=== PATIENT | female | born 1965 | race Two or more races ===

== ENCOUNTER 2018-10-29 13:04 | Emergency (ER) | payer SELFPAY ==
[2018-10-29] MEDS ORDERED: Sodium Chloride 0.9% 1,000 ML IV ONE ×2 (13:21→13:57)
[2018-10-29] MEDS ORDERED: Morphine 4 MG/ML Syringe IVPUSH ONE (13:27)
[2018-10-29] MEDS ORDERED: Ondansetron 4 MG/2 ML SDV IVPUSH ONE (13:27)
--- NOTE | 2018-10-29 13:34 | EDM.PDOC ---
ED HPI GENERAL MEDICAL PROBLEM - General Chief Complaint: WEB APPLICATIONS ARCHITECT Problem Stated Complaint: PELVIC AND BACK PAIN Time Seen by Provider: 10/29/18 13:05 Source of Information: Reports: Patient History Limitations: Reports: No Limitations - History of Present Illness INITIAL COMMENTS - FREE TEXT/NARRATIVE: HISTORY AND PHYSICAL: History of present illness: Patient is a 53-year-old female who presents to the ED today with concerns of lower abdominal and pelvic pain. Patient states this is ongoing for the past week but is drastically worsened overnight. The patient states that "feels like something falling out of my vagina". She rates her pain an 8-9 out of 10. Patient has been able to eat and drink per normal. She describes the pain as sharp and constant. She states is worse when she presses on it and better when she lays down. She is and in a monogamous relationship. He does have a history of complete hysterectomy and appendectomy. Patient denies fever, chills, nausea, vomiting, diarrhea, constipation, change in stools , blood in stool, difficulties urinating, burning with urination, vaginal discharge, vaginal pain, Review of systems: As per history of present illness and below otherwise all systems reviewed and negative. Past medical history: As per history of present illness and as reviewed below otherwise noncontributory. Surgical history: As per history of present illness and as reviewed below otherwise noncontributory. Social history: See social history for further information Family history: As per history of present illness and as reviewed below otherwise noncontributory. Physical exam: General:Patient is alert, oriented, and in no acute distress. She is lying on exam table mildly uncomfortable. HEENT: Atraumatic, normocephalic, pupils equal and reactive bilaterally, negative for conjunctival pallor or scleral icterus, mucous membranes moist, TMs normal bilaterally, throat clear, neck supple, nontender, trachea midline. No drooling or trismus noted. No meningeal signs. No hot potato voice noted. Lungs: Clear to auscultation, breath sounds equal bilaterally, chest nontender. Heart: S1S2, regular rate and rhythm without overt murmur Abdomen: Abdominal exam limited due to pain. Severe pain to light palpation of the lower half of the abdomen. Soft, nondistended.positive bowel sounds in all quadrants. Negative for masses or hepatosplenomegaly. Negative for costovertebral tenderness. Pelvis: Stable nontender. Genitourinary: This was done with consent and a wire dropper at bedside. Patient does have severe tenderness with insertion of speculum. Genitourinary exam limited due to pain. External genitalia are intact. No protrusions out of the vaginal vault when asked to bear down. Difficulty visualizing her to surgical cuff due to severe tenderness. No abnormal discharge noted. Rectal: Deferred. Skin: Intact, warm, dry. No lesions or rashes noted. Extremities: Atraumatic, negative for cords or calf pain. Neurovascular unremarkable. Neuro: Awake, alert, oriented. Cranial nerves II through XII unremarkable. Cerebellum unremarkable. Motor and sensory unremarkable throughout. Exam nonfocal. Notes: On exam, patient does have severe tenderness to palpation of the lower abdomen. Will perform labs today as well as abdominal CT. Abdominal/pelvic CT shows no acute findings. She does have a urinary tract infection today. Patient vital signs are stable. Discussed these results with patient and will treat for urinary tract infection. On initial presentation, she was hypotensive upon initial presentation. Although nursing staff believes this was an inaccurate reading as it was rechecked shortly after with a reading of 120s over 80s. Supportive care measures were reviewed and discussed. Voices understanding and is agreeable to plan of care. Denies any further questions or concerns at this time. Diagnostics: CBC, CMP, UA, firm, gonorrhea and chlamydia, abdominal pelvic CT Therapeutics: Saline, Zofran, morphine Prescription: Macrobid, Pyridium Impression: 1. Urinary tract infection Plan: 1. Please take antibiotic and medication as prescribed. 2. You may alternate Tylenol and ibuprofen as needed for pain. 3. Follow up with your primary care provider in the next 1-2 days. 4. Return to the ED as needed and as discussed. Definitive disposition and diagnosis as appropriate pending reevaluation and review of above. pelivic region Pain Score (Numeric/FACES): 7 - Related Data Allergies Allergy/AdvReac Type Severity Reaction Status Date / Time No Known Allergies Allergy Verified 10/29/18 13:16 Home Meds: Home Meds Nitrofurantoin Monohyd/M-Cryst [Macrobid 100 mg Capsule] 100 mg PO BID 5 Days # 10 capsule 10/29/18 [Rx] Phenazopyridine HCl [Pyridium] 100 mg PO TID 2 Days #8 tablet 10/29/18 [Rx] Past Medical History HEENT History: Reports: None Cardiovascular History: Reports: None Respiratory History: Reports: None Gastrointestinal History: Reports: None Genitourinary History: Reports: None WEB APPLICATIONS ARCHITECT History: Reports: None Musculoskeletal History: Reports: None Neurological History: Reports: None Psychiatric History: Reports: None Endocrine/Metabolic History: Reports: None Hematologic History: Reports: None Immunologic History: Reports: None Oncologic (Cancer) History: Reports: None Dermatologic History: Reports: None - Infectious Disease History Infectious Disease History: Reports: C-Difficile - Past Surgical History Head Surgeries/Procedures: Reports: None HEENT Surgical History: Reports: None Cardiovascular Surgical History: Reports: None Respiratory Surgical History: Reports: None GI Surgical History: Reports: Appendectomy Female Surgical History: Reports: Hysterectomy, Tubal Ligation, Other (See Below) Other Female Surgeries/Procedures: exploratory srugeyr for ovaries Endocrine Surgical History: Reports: None Neurological Surgical History: Reports: None Musculoskeletal Surgical History: Reports: None Oncologic Surgical History: Reports: None Dermatological Surgical History: Reports: None Social & Family History - Family History Family Medical History: Noncontributory - Tobacco Use Smoking Status *Q: Former Smoker Used Tobacco, but Quit: Yes Month/Year Tobacco Last Used: November 2017 - Caffeine Use Caffeine Use: Reports: None - Recreational Drug Use Recreational Drug Use: No ED ROS GENERAL - Review of Systems Review Of Systems: ROS reveals no pertinent complaints other than HPI. ED EXAM, GI/ABD - Physical Exam Exam: See Below (See dictation) Course - Vital Signs Last Recorded V/S: Last Vital Signs Temp 97.9 F 10/29/18 13:17 Pulse 62 10/29/18 15:19 Resp 13 10/29/18 15:19 BP 116/76 10/29/18 15:19 Pulse Ox 98 10/29/18 15:19 - Orders/Labs/Meds Orders: Active Orders 24 hr Category Date Time Status EKG Documentation Completion [RC] STAT Care 10/29/18 13:32 Inactive CHLAMYDIA AND GONORRHEA BY TMA Stat Lab 10/29/18 14:50 Received CULTURE URINE [RM] Stat Lab 10/29/18 14:10 Received Labs: Laboratory Tests 10/29/18 10/29/18 10/29/18 Range/Units 13:29 13:29 13:56 WBC 5.54 (4.0-11.0) K/uL RBC 4.80 (4.30-5.90) M/uL Hgb 13.7 (12.0-16.0) g/dL Hct 41.1 (36.0-46.0) % MCV 85.6 (80.0-98.0) fL MCH 28.5 (27.0-32.0) pg MCHC 33.3 (31.0-37.0) g/dL RDW Std Deviation 45.6 (28.0-62.0) fl RDW Coeff of Elver 15 (11.0-15.0) % Plt Count 294 (150-400) K/uL MPV 9.50 (7.40-12.00) fL Neut % (Auto) 65.9 (48.0-80.0) % Lymph % (Auto) 21.8 (16.0-40.0) % Rusk % (Auto) 11.4 (0.0-15.0) % Eos % (Auto) 0.7 (0.0-7.0) % Baso % (Auto) 0.2 (0.0-1.5) % Neut # (Auto) 3.7 (1.4-5.7) K/uL Lymph # (Auto) 1.2 (0.6-2.4) K/uL Rusk # (Auto) 0.6 (0.0-0.8) K/uL Eos # (Auto) 0.0 (0.0-0.7) K/uL Baso # (Auto) 0.0 (0.0-0.1) K/uL Nucleated RBC % 0.0 /100WBC Nucleated RBCs # 0 K/uL Sodium 139 (136-145) mmol/L Potassium 3.6 (3.5-5.1) mmol/L Chloride 105 (98-107) mmol/L Carbon Dioxide 24.4 (21.0-32.0) mmol/L BUN 13 (7.0-18.0) mg/dL Creatinine 0.7 (0.6-1.0) mg/dL Est Cr Clr Drug Dosing 72.66 mL/min Estimated GFR (MDRD) > 60.0 ml/min Glucose 100 (74-106) mg/dL Calcium 8.5 (8.5-10.1) mg/dL Total Bilirubin 0.2 (0.2-1.0) mg/dL AST 17 (15-37) IU/L ALT 18 (14-63) IU/L Alkaline Phosphatase 111 (46-116) U/L Total Protein 7.5 (6.4-8.2) g/dL Albumin 3.4 (3.4-5.0) g/dL Globulin 4.1 H (2.6-4.0) g/dL Albumin/Globulin Ratio 0.8 L (0.9-1.6) Urine Color Urine Appearance Urine pH (5.0-8.0) Ur Specific [place] (1.001-1.035) Urine Protein (NEGATIVE) mg/dL Urine Glucose (UA) (NEGATIVE) mg/dL Urine Ketones (NEGATIVE) mg/dL Urine Occult Blood (NEGATIVE) Urine Nitrite (NEGATIVE) Urine Bilirubin (NEGATIVE) Urine Urobilinogen (<2.0) EU/dL Ur Leukocyte Esterase (NEGATIVE) Urine RBC (0-2/HPF) Urine WBC (0-5/HPF) Ur Epithelial Cells (NONE-FEW) Urine Bacteria (NEGATIVE) Leonor species DNA NEGATIVE (NEGATIVE) Gardnerella DNA Probe NEGATIVE (NEGATIVE) Trichomonas DNA Probe NEGATIVE (NEGATIVE) 10/29/18 Range/Units 14:10 WBC (4.0-11.0) K/uL RBC (4.30-5.90) M/uL Hgb (12.0-16.0) g/dL Hct (36.0-46.0) % MCV (80.0-98.0) fL MCH (27.0-32.0) pg MCHC (31.0-37.0) g/dL RDW Std Deviation (28.0-62.0) fl RDW Coeff of Elver (11.0-15.0) % Plt Count (150-400) K/uL MPV (7.40-12.00) fL Neut % (Auto) (48.0-80.0) % Lymph % (Auto) (16.0-40.0) % Rusk % (Auto) (0.0-15.0) % Eos % (Auto) (0.0-7.0) % Baso % (Auto) (0.0-1.5) % Neut # (Auto) (1.4-5.7) K/uL Lymph # (Auto) (0.6-2.4) K/uL Rusk # (Auto) (0.0-0.8) K/uL Eos # (Auto) (0.0-0.7) K/uL Baso # (Auto) (0.0-0.1) K/uL Nucleated RBC % /100WBC Nucleated RBCs # K/uL Sodium (136-145) mmol/L Potassium (3.5-5.1) mmol/L Chloride (98-107) mmol/L Carbon Dioxide (21.0-32.0) mmol/L BUN (7.0-18.0) mg/dL Creatinine (0.6-1.0) mg/dL Est Cr Clr Drug Dosing mL/min Estimated GFR (MDRD) ml/min Glucose (74-106) mg/dL Calcium (8.5-10.1) mg/dL Total Bilirubin (0.2-1.0) mg/dL AST (15-37) IU/L ALT (14-63) IU/L Alkaline Phosphatase (46-116) U/L Total Protein (6.4-8.2) g/dL Albumin (3.4-5.0) g/dL Globulin (2.6-4.0) g/dL Albumin/Globulin Ratio (0.9-1.6) Urine Color YELLOW Urine Appearance SLT CLOUDY Urine pH 5.5 (5.0-8.0) Ur Specific [place] 1.010 (1.001-1.035) Urine Protein NEGATIVE (NEGATIVE) mg/dL Urine Glucose (UA) NEGATIVE (NEGATIVE) mg/dL Urine Ketones NEGATIVE (NEGATIVE) mg/dL Urine Occult Blood SMALL H (NEGATIVE) Urine Nitrite NEGATIVE (NEGATIVE) Urine Bilirubin NEGATIVE (NEGATIVE) Urine Urobilinogen 0.2 (<2.0) EU/dL Ur Leukocyte Esterase MODERATE H (NEGATIVE) Urine RBC 2-4 (0-2/HPF) Urine WBC 3-6 (0-5/HPF) Ur Epithelial Cells FEW (NONE-FEW) Urine Bacteria FEW (NEGATIVE) Leonor species DNA (NEGATIVE) Gardnerella DNA Probe (NEGATIVE) Trichomonas DNA Probe (NEGATIVE) Meds: Medications Discontinued Medications Generic Name Dose Route Start Last Admin Trade Name Freq PRN Reason Stop Dose Admin Sodium Chloride 1,000 mls @ 999 mls/hr 10/29/18 13:21 10/29/18 14:01 Normal Saline IV 10/29/18 14:21 999 mls/hr STAT ONE Administration Sodium Chloride 1,000 mls @ 999 mls/hr 10/29/18 13:57 10/29/18 14:07 Normal Saline IV 10/29/18 14:57 Not Given STAT ONE Morphine Sulfate 4 mg 10/29/18 13:27 10/29/18 14:01 Morphine IVPUSH 10/29/18 13:28 4 mg ONETIME ONE Administration Ondansetron HCl 4 mg 10/29/18 13:27 10/29/18 14:01 Zofran IVPUSH 10/29/18 13:28 4 mg ONETIME ONE Administration Departure - Departure Time of Disposition: 15:19 Disposition: Home, Self-Care 01 Clinical Impression: Urinary tract infection Qualifiers: Urinary tract infection type: site unspecified Hematuria presence: without hematuria Qualified Code(s): N39.0 - Urinary tract infection, site not specified - Discharge Information Prescriptions: Nitrofurantoin Monohyd/M-Cryst [Macrobid 100 mg Capsule] 100 mg PO BID 5 Days # 10 capsule Phenazopyridine HCl [Pyridium] 100 mg PO TID 2 Days #8 tablet Instructions: Urinary Tract Infection, Adult, [id number] Referrals: PCP,None [Primary Care Provider] - Forms: ED Department Discharge Additional Instructions: The following information is given to patients seen in the emergency department who are being discharged to home. This information is to outline your options for follow-up care. We provide all patients seen in our emergency department with a follow-up referral. The need for follow-up, as well as the timing and circumstances, are variable depending upon the specifics of your emergency department visit. If you don't have a primary care physician on staff, we will provide you with a referral. We always advise you to contact your personal physician following an emergency department visit to inform them of the circumstance of the visit and for follow-up with them and/or the need for any referrals to a consulting specialist. The emergency department will also refer you to a specialist when appropriate. This referral assures that you have the opportunity for follow-up care with a specialist. All of these measure are taken in an effort to provide you with optimal care, which includes your follow-up. Under all circumstances we always encourage you to contact your private physician who remains a resource for coordinating your care. When calling for follow-up care, please make the office aware that this follow-up is from your recent emergency room visit. If for any reason you are refused follow-up, please contact the [facility] Emergency Department at and asked to speak to the emergency department charge nurse. [facility] [address] [place] [id number] [facility] [address] [place] [id number] 1. Please take antibiotic and medication as prescribed. 2. You may alternate Tylenol and ibuprofen as needed for pain. 3. Follow up with your primary care provider in the next 1-2 days. 4. Return to the ED as needed and as discussed. - My Orders Last 24 Hours: My Active Orders 10/29/18 13:32 EKG Documentation Completion [RC] STAT 10/29/18 14:10 CULTURE URINE [RM] Stat 10/29/18 14:50 CHLAMYDIA AND GONORRHEA BY TMA Stat - Assessment/Plan Last 24 Hours: My Active Orders 10/29/18 13:32 EKG Documentation Completion [RC] STAT 10/29/18 14:10 CULTURE URINE [RM] Stat 10/29/18 14:50 CHLAMYDIA AND GONORRHEA BY TMA Stat
[2018-10-29 14:06] LABS: CHLORIDE,CL 105 mmol/L (98-107); SODIUM,NA 139 mmol/L (136-145)
--- NOTE | 2018-10-29 15:09 | CT ---
CT of the abdomen and pelvis without contrast. HISTORY: Pain TECHNIQUE: Axial CT images were obtained of the abdomen and pelvis without contrast. Coronal and sagittal reconstructions obtained. FINDINGS: The lung bases are clear, no pleural effusion. The liver, spleen, adrenal glands, and pancreas appear unremarkable for noncontrast examination. The gallbladder appears normal. There is no bulky retroperitoneal lymphadenopathy. No abdominal ascites. There are no calcifications noted within the kidneys or along the courses of the ureters bilaterally. The large and small bowel are normal in caliber without evidence of obstruction. There is no bulky pelvic lymphadenopathy. No free fluid. No free air. The urinary bladder appears normal. The visualized osseous structures appear normal. IMPRESSION: No acute findings within the abdomen or pelvis.
== END 2018-10-29 15:35 | disposition home or self-care (01) ==
LOC: MW.ED 13:04
DX: N39.0 Urinary tract infection, site not specified (principal); Z87.891 Personal history of nicotine dependence
CPT/HCPCS: 36415; 74176; 80053; 81001; 85025; 87086; 87480; 87491; 87510; 87591; 87660; 96361; 96374; 96375; 99284; J2270; J2405; J7040

== ENCOUNTER 2018-11-01 18:15 | Emergency (ER) | payer OTHER ==
--- NOTE | 2018-11-01 18:32 | EDM.PDOC ---
ED HPI GENERAL MEDICAL PROBLEM - General Chief Complaint: Lower Extremity Injury/Pain Stated Complaint: PT HURT LT LEG Time Seen by Provider: 11/01/18 18:32 Source of Information: Reports: Patient History Limitations: Reports: No Limitations - History of Present Illness INITIAL COMMENTS - FREE TEXT/NARRATIVE: HISTORY AND PHYSICAL: History of present illness: Patient is a 53-year-old female here with complaints of left ankle injury. She states that while at work at [employer] she slipped twisting her left ankle. She has been able to bear weight on it injury. She denies head injury or any other pain and is otherwise in her usual state of good health. Review of systems: As per history of present illness and below otherwise all systems reviewed and negative. Past medical history: As per history of present illness and as reviewed below otherwise noncontributory. Surgical history: As per history of present illness and as reviewed below otherwise noncontributory. Social history: No reported history of drug or alcohol abuse. Family history: As per history of present illness and as reviewed below otherwise noncontributory. Physical exam: General: Patient sitting comfortably in no acute distress and nontoxic appearing HEENT: Atraumatic, normocephalic, pupils reactive, negative for conjunctival pallor or scleral icterus, mucous membranes moist, throat clear, neck supple, nontender, trachea midline. No meningeal signs. Lungs: Clear to auscultation, breath sounds equal bilaterally, chest nontender. Heart: S1S2, regular, negative for clicks, rubs, or overt murmur. Abdomen: Soft, nondistended, nontender. Negative for masses or hepatosplenomegaly. Negative for costovertebral tenderness. Pelvis: Stable nontender. Genitourinary: Deferred. Rectal: Deferred. Extremities: Left lateral malleolus as swollen tender to palpation without any obvious deformity. No proximal pain to palpation. CMS intact distally. negative for cords or calf pain. Neurovascular unremarkable. Neuro: Awake, alert, oriented. Cranial nerves II through XII unremarkable. Cerebellum unremarkable. Motor and sensory unremarkable throughout. Exam nonfocal. Notes: Diagnostics: x-ray left anlke Therapeutics: Toradol 60mg IM CAM boot Prescriptions: None Impression: Ankle injury Plan: 1. Ice, elevate, and Motrin as instructed. 2. Follow-up with primary care provider 3. Return to ED as needed as discussed Definitive disposition and diagnosis as appropriate pending reevaluation and review of above. lft. ankle Pain Score (Numeric/FACES): 7 - Related Data Allergies Allergy/AdvReac Type Severity Reaction Status Date / Time No Known Allergies Allergy Verified 10/29/18 13:16 Home Meds: Home Meds Nitrofurantoin Monohyd/M-Cryst [Macrobid 100 mg Capsule] 100 mg PO BID 5 Days # 10 capsule 10/29/18 [Rx] Phenazopyridine HCl [Pyridium] 100 mg PO TID 2 Days #8 tablet 10/29/18 [Rx] Past Medical History HEENT History: Reports: None Cardiovascular History: Reports: None Respiratory History: Reports: None Gastrointestinal History: Reports: None Genitourinary History: Reports: None LIFE CARE PLANNER History: Reports: None Musculoskeletal History: Reports: None Neurological History: Reports: None Psychiatric History: Reports: None Endocrine/Metabolic History: Reports: None Hematologic History: Reports: None Immunologic History: Reports: None Oncologic (Cancer) History: Reports: None Dermatologic History: Reports: None - Infectious Disease History Infectious Disease History: Reports: C-Difficile - Past Surgical History Head Surgeries/Procedures: Reports: None HEENT Surgical History: Reports: None Cardiovascular Surgical History: Reports: None Respiratory Surgical History: Reports: None GI Surgical History: Reports: Appendectomy Female Surgical History: Reports: Hysterectomy, Tubal Ligation, Other (See Below) Other Female Surgeries/Procedures: exploratory srugeyr for ovaries Endocrine Surgical History: Reports: None Neurological Surgical History: Reports: None Musculoskeletal Surgical History: Reports: None Oncologic Surgical History: Reports: None Dermatological Surgical History: Reports: None Social & Family History - Family History Family Medical History: Noncontributory - Caffeine Use Caffeine Use: Reports: None Review of Systems - Review of Systems Review Of Systems: ROS reveals no pertinent complaints other than HPI. ED EXAM, GENERAL - Physical Exam Exam: See Below (see dictation) Course - Vital Signs Last Recorded V/S: Last Vital Signs Temp 97.2 F 11/01/18 18:38 Pulse 70 11/01/18 18:38 Resp 18 11/01/18 18:38 BP 132/81 11/01/18 18:38 Pulse Ox 99 11/01/18 18:38 - Orders/Labs/Meds Orders: Active Orders 24 hr Category Date Time Status Ankle Min 3V Lt [CR] Stat Exams 11/01/18 18:39 Taken Meds: Medications Discontinued Medications Generic Name Dose Route Start Last Admin Trade Name Rasheed PRN Reason Stop Dose Admin Ketorolac Tromethamine 60 mg 11/01/18 20:00 11/01/18 20:08 Toradol IM 11/01/18 20:01 60 mg ONETIME ONE Administration Departure - Departure Time of Disposition: 20:14 Disposition: Home, Self-Care 01 Condition: Good Clinical Impression: Ankle injury - Discharge Information Referrals: PCP,None [Primary Care Provider] - Forms: ED Department Discharge Additional Instructions: The following information is given to patients seen in the emergency department who are being discharged to home. This information is to outline your options for follow-up care. We provide all patients seen in our emergency department with a follow-up referral. The need for follow-up, as well as the timing and circumstances, are variable depending upon the specifics of your emergency department visit. If you don't have a primary care physician on staff, we will provide you with a referral. We always advise you to contact your personal physician following an emergency department visit to inform them of the circumstance of the visit and for follow-up with them and/or the need for any referrals to a consulting specialist. The emergency department will also refer you to a specialist when appropriate. This referral assures that you have the opportunity for follow-up care with a specialist. All of these measure are taken in an effort to provide you with optimal care, which includes your follow-up. Under all circumstances we always encourage you to contact your private physician who remains a resource for coordinating your care. When calling for follow-up care, please make the office aware that this follow-up is from your recent emergency room visit. If for any reason you are refused follow-up, please contact the [facility] Emergency Department at and asked to speak to the emergency department charge nurse. [facility] [address] [place] [id number] [address] 1. Ice, elevate, and Motrin as instructed. 2. Follow-up with primary care provider 3. Return to ED as needed as discussed - My Orders Last 24 Hours: My Active Orders 11/01/18 18:39 Ankle Min 3V Lt [CR] Stat - Assessment/Plan Last 24 Hours: My Active Orders 11/01/18 18:39 Ankle Min 3V Lt [CR] Stat
[2018-11-01] MEDS ORDERED: Ketorolac 60 MG/2 ML SDV IM ONE (20:00)
--- NOTE | 2018-11-01 20:14 | CR ---
Indication: Fall. Pain Technique: Three views of the left ankle Comparison: None available Findings: Bones: No acute fracture or dislocation. A small plantar calcaneal spur and a small posterior calcaneal enthesophyte which may be fragmented. Joint spaces: Unremarkable. Soft tissues: Unremarkable. Impression: No acute fracture or dislocation. Dictated by Aime Connors MD @ 11/01/2018 8:13:27 PM Dictated by: Aime Connors MD @ 11/01/2018 20:13:35 (Electronically Signed)
== END 2018-11-01 20:34 | disposition home or self-care (01) ==
LOC: MW.ED 18:15
DX: S99.912A Unspecified injury of left ankle, initial encounter (principal); X50.1XXA Overexertion from prolonged static or awkward postures, initial encounter
CPT/HCPCS: 73610; 96372; 99283; J1885

== ENCOUNTER 2018-11-14 06:01 | Emergency (ER) | payer OTHER ==
--- NOTE | 2018-11-14 06:08 | EDM.PDOC ---
<Susy Caputo - Last Filed: 11/14/18 06:18> ED HPI GENERAL MEDICAL PROBLEM - General Stated Complaint: AMBULANCE Time Seen by Provider: 11/14/18 06:02 - History of Present Illness INITIAL COMMENTS - FREE TEXT/NARRATIVE: HISTORY AND PHYSICAL: History of present illness: Patient is a 53-year-old female who arrives via EMS with complaints of lumbar back pain and pain at her posterior pelvis on the left ever since a fall that occurred at work on November 01 injuring her left ankle and foot. The patient said she had pain at the time and told the provider and it was felt to be more muscular from the fall. The patient says that when she fell she did fall landing on her left side impacting both her back on that side as well as injuring her ankle and foot. As she has been spending time with her provider in the clinic addressing her ankle and foot she says that the pain has been persistent and because of her altered gait due to the walking boot on the left she feels that now the pain is involving both the left and the right lower back areas. She's not had any new falls and no neurosensory changes in her legs. She does not have weakness in her legs and the pain is worse with certain position changes and with ambulation. She says it is a cramping like sensation like when she used to have a period. She has no bowel or bladder disturbances and she has no longer had any lower abdominal or pelvic pain as she had when she presented on her first ED visit here on Oct 29 and she tells me that she finished her treatment for her UTI and has no symptoms related to that. She says she has tramadol that she has been using and also using [id number] ibuprofen. The prior visits were reviewed by me as dictated below. The patient says she has no flank pain per se and no fevers chills nausea vomiting chest pain or shortness of breath. She has no discrete extremity complaints other than the chronic pain at her left foot and ankle. The charting from the emergency department visits were reviewed by me ---on Oct 29 with complaints of lower abdominal pain and she received labs and a CAT scan of the abdomen and pelvis. The CT scan was negative and she was diagnosed with the UTI and treated appropriately. The urine culture performed on that date was negative. The patient again presented to the ED 3 days later on Nov 01 after a slip and fall at work at [employer] and pain to her left ankle. The patient an x-ray and has since followed up with her provider in the clinic on November 07 and had an MRI performed of the area. That MRI result was reviewed by me. Please see below for those MRI results The patient has a history of a hysterectomy and appendectomy. The patient was also given prednisone but no other muscle relaxers or pain medications other than the tramadol by her clinic provider. He should also be noted that the patient has had the pain since her initial fall on November 01 and it is just worsened and now involves bilateral back in the lumbar area. Review of systems: As per history of present illness and below otherwise all systems reviewed and negative. Past medical history: As per history of present illness and as reviewed below otherwise noncontributory. Surgical history: As per history of present illness and as reviewed below otherwise noncontributory. Social history: No reported history of drug or alcohol abuse. Family history: As per history of present illness and as reviewed below otherwise noncontributory. Physical exam: General: Well-developed well-nourished female who is nontoxic and vital signs were noted by me. Please note that when the patient came in on the EMS cart she was in the prone position. The patient moves easily in the ED without assistance and says that she does feel improved after the fentanyl she was given in route. HEENT: Atraumatic, normocephalic, negative for conjunctival pallor or scleral icterus, mucous membranes moist, throat clear, neck supple, nontender, trachea midline. Lungs: Clear to auscultation, breath sounds equal bilaterally, chest nontender. Heart: S1S2, regular rate and rhythm no overt murmurs Abdomen: Soft, nondistended, nontender. Negative for masses or hepatosplenomegaly. Negative for costovertebral tenderness. Pelvis: Stable nontender. Genitourinary: Deferred. Rectal: Deferred. Extremities: Atraumatic, negative for cords or calf pain. Neurovascular unremarkable. An ortho Boot is in place on the left foot consistent with her history of injury. Extremities otherwise have full range of motion without defects deformities or deficits Neuro: Awake, alert, oriented. Cranial nerves II through XII unremarkable. Cerebellum unremarkable. Motor and sensory unremarkable throughout. Exam nonfocal. Dorsi flexion of bilateral great toes is intact and motor is intact in the lower extremities. Patellar reflexes are brisk +2/4 Back: There are no midline step-offs tenderness or defects of the thoracic or lumbar spine but there is diffuse paraspinal tenderness appreciated more on the left side and at the SI joint on the left. There is no discrete posterior pelvis defects or deformities appreciated and no soft tissue injuries are seen. Diagnostics: CT scan of the lumbar spine with attention to the SI joint on the left Therapeutics: Toradol Dilaudid IV fluids Norflex MRI of the ankle that was performed on November 07 reveals a LisFrank ligament injury possibly high-grade as well as marrow edema in the second metatarsal base at the Lisfranc ligament attachment which may be reactive. A small nondisplaced fracture is difficult to exclude in this area. It was felt that there was bone contusion or stress reaction in the dorsal head of the talus and no evidence of any ankle ligamentous injuries Please note that the patient did receive fentanyl and route 50 g per EMS and she says that she feels significantly better after that. 0700: Case is endorsed to Dr. Hansen to follow-up the CT scan and disposition the patient. Impression: Lumbar back pain, bilateral left greater than right, SI joint pain left greater than right history of fall and left foot injury chronic Definitive disposition and diagnosis as appropriate pending reevaluation and review of above. lower back Pain Score (Numeric/FACES): 6 - Related Data Allergies Allergy/AdvReac Type Severity Reaction Status Date / Time No Known Allergies Allergy Verified 11/14/18 06:10 Home Meds: Home Meds traMADol [Ultram] 50 mg PO Q4H PRN 11/14/18 [History] Past Medical History HEENT History: Reports: None Cardiovascular History: Reports: None Respiratory History: Reports: None Gastrointestinal History: Reports: None Genitourinary History: Reports: None IT RISK ADVISOR History: Reports: None Musculoskeletal History: Reports: None Neurological History: Reports: None Psychiatric History: Reports: None Endocrine/Metabolic History: Reports: None Hematologic History: Reports: None Immunologic History: Reports: None Oncologic (Cancer) History: Reports: None Dermatologic History: Reports: None - Infectious Disease History Infectious Disease History: Reports: C-Difficile - Past Surgical History Head Surgeries/Procedures: Reports: None HEENT Surgical History: Reports: None Cardiovascular Surgical History: Reports: None Respiratory Surgical History: Reports: None GI Surgical History: Reports: Appendectomy Female Surgical History: Reports: Hysterectomy, Tubal Ligation, Other (See Below) Other Female Surgeries/Procedures: exploratory srugeyr for ovaries Endocrine Surgical History: Reports: None Neurological Surgical History: Reports: None Musculoskeletal Surgical History: Reports: None Oncologic Surgical History: Reports: None Dermatological Surgical History: Reports: None Social & Family History - Family History Family Medical History: Noncontributory - Caffeine Use Caffeine Use: Reports: None ED ROS GENERAL - Review of Systems Review Of Systems: ROS reveals no pertinent complaints other than HPI. ED EXAM, GENERAL - Physical Exam Exam: See Below (See dictation) Course - Vital Signs Last Recorded V/S: Last Vital Signs Temp 98.2 F 11/14/18 06:05 Pulse 77 11/14/18 06:05 Resp 18 11/14/18 06:05 BP 121/80 11/14/18 06:05 Pulse Ox 98 11/14/18 06:05 - Orders/Labs/Meds Orders: Active Orders 24 hr Category Date Time Status Lumbar Spine wo Cont [CT] Stat Exams 11/14/18 06:17 Taken Meds: Medications Discontinued Medications Generic Name Dose Route Start Last Admin Trade Name Freq PRN Reason Stop Dose Admin Diphenhydramine HCl 25 mg 11/14/18 06:59 11/14/18 07:05 Benadryl IVPUSH 11/14/18 07:00 25 mg ONETIME ONE Administration Hydromorphone HCl 0.5 mg 11/14/18 06:17 11/14/18 06:34 Dilaudid IVPUSH 11/14/18 06:18 Not Given ONETIME ONE Hydromorphone HCl 0.5 mg 11/14/18 06:22 11/14/18 06:32 Dilaudid IVPUSH 11/14/18 06:23 0.5 mg ONETIME STA Administration Sodium Chloride 1,000 mls @ 999 mls/hr 11/14/18 06:15 11/14/18 06:31 Normal Saline IV 11/14/18 07:15 999 mls/hr STAT ONE Administration Ketorolac Tromethamine 30 mg 11/14/18 06:15 11/14/18 06:31 Toradol IVPUSH 11/14/18 06:16 30 mg ONETIME ONE Administration Orphenadrine Citrate 60 mg 11/14/18 06:15 11/14/18 06:32 Norflex IM 11/14/18 06:16 60 mg ONETIME ONE Administration Departure - Departure Disposition: Home, Self-Care 01 Clinical Impression: Low back pain - Discharge Information Referrals: PCP,None [Primary Care Provider] - Additional Instructions: The following information is given to patients seen in the emergency department who are being discharged to home. This information is to outline your options for follow-up care. We provide all patients seen in our emergency department with a follow-up referral. The need for follow-up, as well as the timing and circumstances, are variable depending upon the specifics of your emergency department visit. If you don't have a primary care physician on staff, we will provide you with a referral. We always advise you to contact your personal physician following an emergency department visit to inform them of the circumstance of the visit and for follow-up with them and/or the need for any referrals to a consulting specialist. The emergency department will also refer you to a specialist when appropriate. This referral assures that you have the opportunity for follow-up care with a specialist. All of these measure are taken in an effort to provide you with optimal care, which includes your follow-up. Under all circumstances we always encourage you to contact your private physician who remains a resource for coordinating your care. When calling for follow-up care, please make the office aware that this follow-up is from your recent emergency room visit. If for any reason you are refused follow-up, please contact the [facility] Emergency Department at and asked to speak to the emergency department charge nurse. Take meds as directed, follow up with your primary care physician, return to ER if symptoms worsen or change. [facility] Primary [facility] [place] [id number] <Felipa Hansen - Last Filed: 11/14/18 08:23> ED HPI GENERAL MEDICAL PROBLEM - History of Present Illness INITIAL COMMENTS - FREE TEXT/NARRATIVE: Patient's lumbar CT was negative for fracture and other abnormalities, she is being discharged with Norflex and [place] she is to take them as directed. Patient is recommended to follow up with primary care. Departure - Departure Time of Disposition: 08:21 - Discharge Information *PRESCRIPTION DRUG MONITORING PROGRAM REVIEWED*: No *COPY OF PRESCRIPTION DRUG MONITORING REPORT IN PATIENT FRANCINE: No
[2018-11-14] MEDS ORDERED: Sodium Chloride 0.9% 1,000 ML IV ONE (06:15)
[2018-11-14] MEDS ORDERED: Ketorolac 30 MG/ML SDV IVPUSH ONE (06:15)
[2018-11-14] MEDS ORDERED: HYDROmorphone 2 MG/ML Syringe IVPUSH ONE (06:17)
[2018-11-14] MEDS ORDERED: HYDROmorphone 1 MG/ML Syringe IVPUSH STA (06:22)
[2018-11-14] MEDS ORDERED: diphenhydrAMINE 50 MG/ML SDV IVPUSH ONE (06:59)
--- NOTE | 2018-11-14 08:37 | CT ---
CT LUMBAR SPINE WITHOUT IV CONTRAST INCLUDING AXIAL, CORONAL AND SAGITTAL IMAGES, 11/14/2018 CLINICAL HISTORY: Pain, fall two weeks ago. Bilateral pain in the [id number] right. Evaluate left sacroiliac joint. TECHNIQUE: CT lumbar spine without IV contrast including axial, coronal and sagittal images. FINDINGS: No fracture or subluxation in the lumbosacral spine. No discrete abnormality involving the sacroiliac joints. Small sclerotic lesion in the left iliac bone medially likely benign. Small cyst in the right kidney. Small duodenal diverticulum. Hysterectomy. Remainder negative. IMPRESSION: No fracture or subluxation in the lumbosacral spine. Sacroiliac joints show mild degenerative change but otherwise appear normal. Other findings as above. Star Kovacs MD Body/PET Radiologist Tour [facility] BRB/patienceb Transcribed: 8:15 a.m. [email or web address] SHERWIN/Dictated by: tSar Kovacs MD @ 11/14/2018 7:06:00 AM (Electronically Signed)
== END 2018-11-14 08:37 | disposition home or self-care (01) ==
LOC: MW.ED 06:01
DX: S39.92XA Unspecified injury of lower back, initial encounter (principal); S99.922A Unspecified injury of left foot, initial encounter; W18.39XA Other fall on same level, initial encounter
CPT/HCPCS: 72131; 96361; 96372; 96374; 96375; 99284; J1170; J1200; J1885; J2360; J7040; 99283